=== PATIENT | female | born 1950 | race Caucasian/White ===

== ENCOUNTER 2018-07-28 15:35 | Emergency (ER) | payer MEDICARE ==
--- NOTE | 2018-07-28 15:43 | PDOC ---
Rapid Medical Evaluation Chief Complaint: Lightheaded Time Seen by Provider: 07/28/18 15:36 Medical Evaluation: 07/28/18 15:41 67 year old female c/o dizziness, vomiting, blurred vision since 6 am now with headache and blurred vision, PE: patient alert ox3 A: dizziness P: labs ct head patient to the ER for further management of care. Discharge Disposition - Diagnosis Dizziness Headache Qualifiers: Headache type: unspecified Headache chronicity pattern: acute headache Intractability: not intractable Qualified Code(s): R51 - Headache - Referrals - Patient Instructions - Post Discharge Activity
[2018-07-28 15:46] VITALS: BP 154/81; PULSE 88; TEMP 98.5; BMI 24.0
[2018-07-28 16:41] LABS: BASO % 0.7 % (0-2.0); EOS % 0.1 % (0-4.5); HEMATOCRIT 37.4 % (32.4-45.2); HEMOGLOBIN 12.8 GM/dL (10.7-15.3); LYMPH % 21.4 % (8-40); MCH 29.8 pg (25.7-33.7); MCHC 34.3 g/dl (32.0-36.0); MEAN CELL VOLUME 86.9 fl (80-96); MEAN PLT VOLUME 7.9 fl (7.5-11.1); MONO % 3.6 % (3.8-10.2); NEUT % 74.2 % (42.8-82.8); PLATELET COUNT 511 K/MM3 (134-434); RDW 13.4 % (11.6-15.6); WHITE BLOOD COUNT 9.4 K/mm3 (4.0-10.0)
[2018-07-28 17:16] LABS: ALBUMIN 4.2 g/dl (3.4-5.0); ALK PHOS 69 U/L (45-117); ANION GAP 9 MMOL/L (8-16); BILIRUBIN,TOTAL 0.4 mg/dL (0.2-1); BLOOD UREA NITROGEN 22 mg/dL (7-18); CALCIUM 9.3 mg/dL (8.5-10.1); CHLORIDE 103 mmol/L (98-107); CO2 26 mmol/L (21-32); CREATININE 1.1 mg/dL (0.55-1.3); GLUCOSE,RANDOM 121 mg/dL (74-106); POTASSIUM 3.9 mmol/L (3.5-5.1); SGOT/AST 18 U/L (15-37); SGPT/ALT 21 U/L (13-61); SODIUM 138 mmol/L (136-145); TOT PROT 7.6 g/dl (6.4-8.2)
[2018-07-28 17:32] LABS: URINE APPEARANCE CLEAR; URINE BILIRUBIN NEGATIVE (<2.0 mg/dL); URINE COLOR STRAW; URINE GLUCOSE (UA) NEGATIVE (NEGATIVE); URINE KETONE NEGATIVE (NEGATIVE); URINE LEUK ESTERASE 1+ (NEGATIVE); URINE NITRITE NEGATIVE (NEGATIVE); URINE PROTEIN NEGATIVE (NEGATIVE); URINE UROBILINOGEN NEGATIVE mg/dL (0.2-1.0)
--- NOTE | 2018-07-28 17:35 | PDOC ---
History of Present Illness - General Chief Complaint: Lightheaded Stated Complaint: Lightheaded Time Seen by Provider: 07/28/18 15:36 - History of Present Illness Initial Comments: The patient is a 67F w/ no reported PMH who presents for evaluation of LUCAS. The patient reports that the LUCAS started at approximately 0600 this morning after an episode of vomiting. The LUCAS worsened throughout the day, was associated with blurry vision, dizziness, and two more episodes of emesis. The patient did not take any thing for the pain. She denies having had a LUCAS like this before. Reports that her LUCAS has since resolved, her vision is back to normal, and she no longer feels nauseated. She denies fevers/chills, chest pain, no abdominal pain. 07/28/18 18:22 Past History - Past Medical History Allergies/Adverse Reactions: Allergies Allergy/AdvReac Type Severity Reaction Status Date / Time No Known Allergies Allergy Verified 07/28/18 15:43 COPD: No - Suicide/Smoking/Psychosocial Hx Smoking History: Never smoked Hx Alcohol Use: No Drug/Substance Use Hx: No Review of Systems - Review of Systems Able to Perform ROS?: Yes Comments:: GENERAL/CONSTITUTIONAL: No fever or chills. No weakness HEAD, EYES, EARS, NOSE AND THROAT: No ear pain or discharge. No sore throat CARDIOVASCULAR: No chest pain or shortness of breath RESPIRATORY: No cough, wheezing, or hemoptysis GASTROINTESTINAL: No diarrhea or constipation GENITOURINARY: No dysuria, frequency, or change in urination MUSCULOSKELETAL: No joint or muscle swelling or pain. No neck or back pain SKIN: No rash NEUROLOGIC: No vertigo, loss of consciousness, or change in strength/sensation ENDOCRINE: No increased thirst. No abnormal weight change HEMATOLOGIC/LYMPHATIC: No anemia, easy bleeding, or history of blood clots ALLERGIC/IMMUNOLOGIC: No hives or skin allergy 07/28/18 17:34 Is the patient limited Azeri proficient: No *Physical Exam - Vital Signs Last Vital Signs Temp Pulse Resp BP Pulse Ox 98.5 F 88 16 154/81 100 07/28/18 15:43 07/28/18 15:43 07/28/18 15:43 07/28/18 15:43 07/28/18 15:43 - Physical Exam Comments: GENERAL: Awake, alert, and fully oriented, in no acute distress HEAD: No signs of trauma, normocephalic, atraumatic EYES: PERRLA, EOMI, sclera anicteric, conjunctiva clear ENT: Hearing grossly normal, nares patent, oropharynx clear without exudates. Moist mucosa LUNGS: No distress, speaks full sentences, clear to auscultation bilaterally HEART: Regular rate and rhythm, normal S1 and S2, no murmurs appreciated, peripheral pulses normal and equal bilaterally ABDOMEN: Soft, nontender, normoactive bowel sounds. No guarding, no rebound EXTREMITIES : Normal inspection, Normal range of motion, no edema. No clubbing or cyanosis NEUROLOGICAL: Cranial nerves II through XII grossly intact. Normal speech, normal gait, no focal sensorimotor deficits SKIN: Warm, Dry, normal turgor, no rashes or lesions noted 07/28/18 17:34 ED Treatment Course - LABORATORY CBC & Chemistry Diagram: 07/28/18 16:30 07/28/18 16:30 - ADDITIONAL ORDERS Additional order review: Laboratory Results 07/28/18 16:30 Sodium 138 Potassium 3.9 Chloride 103 Carbon Dioxide 26 Anion Gap 9 BUN 22 H Creatinine 1.1 Creat Clearance w eGFR 49.69 Random Glucose 121 H Calcium 9.3 Total Bilirubin 0.4 AST 18 ALT 21 Alkaline Phosphatase 69 Total Protein 7.6 Albumin 4.2 07/28/18 16:30 RBC 4.30 MCV 86.9 MCHC 34.3 RDW 13.4 MPV 7.9 Neutrophils % 74.2 Lymphocytes % 21.4 Monocytes % 3.6 L Eosinophils % 0.1 Basophils % 0.7 Medical Decision Making - Medical Decision Making The patient is a 67F who presents for evaluation of LUCAS, dizziness, and emesis since 0600 that worsened to it's max at 0900. She did not take anything for the pain and it has since resolved as well as her other symptoms. ED Course CMP, CBC, UA CT Head CT Head w/o evidence of acute pathology No leukocytosis Cr wnl UA pending 07/28/18 17:34 PCP: Dr. De Luna Will give Tylenol 975mg PO once Patient reports having chronically low BP -Plan for repeat vitals and likely D/C Discussed lab and imaging results w/ patient I have transferred care of the patient to Dr. Solorzano and discussed the clinical presentation, work-up and ED course thus far. 07/28/18 18:33 *DC/Admit/Observation/Transfer Diagnosis at time of Disposition: Dizziness Headache Qualifiers: Headache type: unspecified Headache chronicity pattern: acute headache Intractability: not intractable Qualified Code(s): R51 - Headache - Discharge Dispostion Disposition: ELOPED Condition at time of disposition: Stable Decision to Admit order: No - Referrals Referrals: Roel De Luna [Non Staff, Medical] - - Patient Instructions Printed Discharge Instructions: DI for Headache - Post Discharge Activity
[2018-07-28 17:44] LABS: EPI CELLS RARE /HPF (FEW)
--- NOTE | 2018-07-28 18:25 | PDOC ---
Attending Attestation - HPI HPI: Patient is a 67 year old setswana speaking female with no significant PMHx, who presents with nausea, vomiting, and headache since earlier this morning. Patient states that at 6:00 am she experienced 1 episode of vomiting followed by a headache. She reports the headache was gradual onset and progressively worsened. She notes associated dizziness and blurry vision during the headache. She states that at 9 am she had another intense headache and vomitted 2x afterwards. She does not note any current headache. She denies taking any medication for the headache. 07/28/18 18:50 <Mary Carmen Banda - Last Filed: 07/28/18 18:50> - Resident Resident Name: Terry Solis - ED Attending Attestation I have performed the following: I have examined & evaluated the patient, The case was reviewed & discussed with the resident, I agree w/resident's findings & plan, Exceptions are as noted - HPI HPI: 07/28/18 18:26 67 yo states she had a severe frontal LUCAS with nausea and vomiting x 3 , no focal neuro deficits -she has no history of prior headache history, no history of high blood pressure - Physicial Exam PE: 07/28/18 18:32 wnwd 67 yo female vomited at 6am and then dev a frontal headache that was severe at 9am . She has 2 more episodes of vomiting dusing the day head ncat eyes jason eomi neck supple lungs cta b/l cvs [id number] abd nontender ext no edema skin warm and dry no flank pain neuro axox3,ambulatory psych appropriate - Medical Decision Making 07/28/18 18:36 ct scan head negative for any acute intracranial pathology, no gross focal neural deficits labs reveiwed [id number] 07/30/18 02:40 CBC no leukocytosis. Patient's headache resolved. Impression migraine <Dorene Corral - Last Filed: 07/30/18 02:40>
[2018-07-28] MEDS ORDERED: ACETAMINOPHEN 325 MG TABLET (FP) PO ONE (18:27)
[2018-07-28] MEDS ORDERED: ACETAMINOPHEN 325 MG TABLET (FP) ONE (18:45)
--- NOTE | 2018-07-28 21:14 | PDOC ---
*Physical Exam - Vital Signs Last Vital Signs Temp Pulse Resp BP Pulse Ox 98.5 F 88 16 154/81 100 07/28/18 15:43 07/28/18 15:43 07/28/18 15:43 07/28/18 15:43 07/28/18 15:43 - Physical Exam Comments: 07/28/18 21:14 67 year old female with no PMH presented to ED for headache, vomiting, dizziness. Arrival vitals: no tachycardia HR 88, mild hypertension 154/81, no tachypnea, no hypoxia on room air. Labs reviewed: - No leukocytosis, no anemia - No electrolyte abnormality, no BRIAN; BUN 22, CR 1.2, no prior to compare - UA contaminated with epithelial cells, positive LE, but <5 WBC; pt is asymptomatic, will not treat based on clinical status at this time. Imaging reviewed: - CT brain: no acute intracranial pathology Pt received tylenol 975 mg. Pt stated her symptoms have resolved. Plan to repeat vitals and discharged. 07/28/18 21:25 Pt unable to be found in the Emergency Department. 07/28/18 22:09 Pt unable to be found in the Emergency Department. Pt eloped. ED Treatment Course - LABORATORY CBC & Chemistry Diagram: 07/28/18 16:30 07/28/18 16:30 - ADDITIONAL ORDERS Additional order review: Laboratory Results 07/28/18 07/28/18 16:30 16:27 Sodium 138 Potassium 3.9 Chloride 103 Carbon Dioxide 26 Anion Gap 9 BUN 22 H Creatinine 1.1 Creat Clearance w eGFR 49.69 Random Glucose 121 H Calcium 9.3 Total Bilirubin 0.4 AST 18 ALT 21 Alkaline Phosphatase 69 Total Protein 7.6 Albumin 4.2 Urine Color Straw Urine Appearance Clear Urine pH 6.0 Ur Specific Cassel 1.005 L Urine Protein Negative Urine Glucose (UA) Negative Urine Ketones Negative Urine Blood 1+ H Urine Nitrite Negative Urine Bilirubin Negative Urine Urobilinogen Negative Ur Leukocyte Esterase 1+ H Urine WBC (Auto) 3 Urine RBC (Auto) 2 Ur Epithelial Cells Rare 07/28/18 16:30 RBC 4.30 MCV 86.9 MCHC 34.3 RDW 13.4 MPV 7.9 Neutrophils % 74.2 Lymphocytes % 21.4 Monocytes % 3.6 L Eosinophils % 0.1 Basophils % 0.7 - Medications Given in the ED: ED Medications Discontinued Medications Generic Name Dose Route Start Last Admin Trade Name Ofelia PRN Reason Stop Dose Admin Acetaminophen 975 mg 07/28/18 18:27 07/28/18 19:07 Tylenol - PO 07/28/18 18:28 975 mg ONCE ONE Administration *DC/Admit/Observation/Transfer Diagnosis at time of Disposition: Dizziness Headache Qualifiers: Headache type: unspecified Headache chronicity pattern: acute headache Intractability: not intractable Qualified Code(s): R51 - Headache - Discharge Dispostion Disposition: ELOPED Condition at time of disposition: Stable Decision to Admit order: No - Referrals Referrals: Roel De Luna [Non Staff, Medical] - - Patient Instructions Printed Discharge Instructions: DI for Headache - Post Discharge Activity
== END 2018-07-28 22:09 | disposition left against medical advice (07) ==
LOC: JER 15:35
DX: R51 Headache (principal)
CPT/HCPCS: 36415; 70450-TC; 80053; 81003; 81015; 85025; 99282-25